=== PATIENT | female | born 1995 | race Caucasian/White ===

== ENCOUNTER 2017-03-21 13:11 | Emergency (ER) | payer OTHER | END 2017-03-21 16:39 | disposition home or self-care (01) | LOC: ER 13:11 | DX: T74.21XA Adult sexual abuse, confirmed, initial encounter (principal); N76.0 Acute vaginitis; F17.210 Nicotine dependence, cigarettes, uncomplicated; Z79.899 Other long term (current) drug therapy; Y07.59 Other non-family member, perpetrator of maltreatment and neglect | CPT/HCPCS: 36415; 96372; J0696 ==

== ENCOUNTER 2017-03-22 22:55 | Emergency (ER) | payer OTHER | END 2017-03-22 22:59 | disposition left against medical advice (07) | LOC: ER 22:55 | DX: Z53.21 Procedure and treatment not carried out due to patient leaving prior to being seen by health care provider (principal) ==